=== PATIENT | male | born 1980 | race Caucasian/White ===

== ENCOUNTER 2016-09-29 08:03 | Emergency (ER) | payer BC ==
[~2016-09-29] VITALS: Ht 190.5 cm; Wt 79.6 kg
[~2016-09-29 08:03] MED LIST: ADVIL,NUPRIN,M200 MG PO; AMOX TR-K CLV1 EAC4 PO; Aspirin E.C. PO; BACTRIM,SEPT1 TABLET PO; BENTYL20 MG PO; INDOCIN25 MG PO; NAPROSYN500 MG PO; NICOTINE PATCH1 EAC1 TD; PANTOPRAZOLE SO40 MG PO; PREDNISONE20 MG PO; ULTRACET1 TABLET PO; VALIUM5 MG PO; ZANAFLEX2 M1 PO; ZITHROMAX250 MG PO
[2016-09-29 08:06] VITALS: BP 119/71
[2016-09-29] MEDS ORDERED: ZITHROMAX250 MG PO (08:22)
[2016-09-29] MEDS ORDERED: TESSALON PERLE100 MG PO (08:22)
[2016-09-29] MEDS ORDERED: ULTRAM50 MG PO (08:22)
[2016-09-29] MEDS ORDERED: FLEXERIL10 MG PO (10:29)
[2016-09-29] MEDS ORDERED: MUCUS ER600 MG PO (10:29)
[2016-09-29] MEDS ORDERED: FLONASE16 G1 BOTH NARES (10:29)
[2016-09-29] MEDS ORDERED: NAPROSYN500 MG PO (10:29)
[2016-09-29] MEDS ORDERED: ROBITUSSIN NIG118 ML PO (10:29)
[2016-09-29] MEDS ORDERED: ZYRTEC10 M2 PO (10:29)
== END 2016-09-29 10:44 | disposition home or self-care (01) ==
LOC: EME 08:03
DX: J06.9 Acute upper respiratory infection, unspecified (principal); J34.89 Other specified disorders of nose and nasal sinuses; M94.0 Chondrocostal junction syndrome [Tietze]; F17.200 Nicotine dependence, unspecified, uncomplicated; Z71.6 Tobacco abuse counseling
CPT/HCPCS: 71020; 99281; 99284